=== PATIENT | female | born 1985 | race Caucasian/White ===

== ENCOUNTER → 2019-12-20 17:20 | Outpatient (CLI) | payer MEDICAID ==
[~2019-12-20 17:20] MED LIST: PRENAVITE1 TAB PO
== END | disposition home or self-care (01) ==
LOC: D.LDO 17:20
PROVIDERS: ATTEND Student in an Organized Health Care Education/Training Program
DX: O35.9XX0 Maternal care for (suspected) fetal abnormality and damage, unspecified, not applicable or unspecified (principal)

== ENCOUNTER 2020-01-18 10:10 | Inpatient (IN) | payer MEDICAID ==
[2020-01-18] VITALS (8 sets, daily range): BP systolic 102–123; BP diastolic 61–79; Ht 152.4 cm; Wt 84.4 kg
[~2020-01-18] VITALS: Ht 152.4 cm; Wt 84.4 kg
--- NOTE | ~2020-01-18 | OP ---
PATIENT NAME: JERICHO BARKLEY MEDICAL RECORD: [id number] :87 LOCATION:[facility] D.1222 ADMISSION DATE:01/18/20 SURGEON: CHERYL FARRELL DO DATE OF OPERATION: 01/18/2020 PREOPERATIVE DIAGNOSES: Previous , sandra nonreassuring heart tracing. POSTOPERATIVE DIAGNOSES: Previous , sandra nonreassuring heart tracing. PRIMARY SURGEON: Cheryl Farrell DO ANESTHESIA: Spinal. PROCEDURE: Repeat low transverse section via Pfannenstiel incision. FINDINGS: Male , weight 8 pounds 15 ounces, born at 1448, Apgars 9 and 9. Normal appearing uterus, bilateral fallopian tubes, bilateral ovaries. SPECIMENS: Placenta and cord blood. ESTIMATED BLOOD LOSS: 800 mL. IV FLUIDS: 2 liters. URINE OUTPUT: 550 cc clear urine. COMPLICATIONS: None. CONDITION: Stable. PROCEDURE: The risks, benefits, alternatives, and indications of the procedure were discussed with the patient. She voiced understanding of the procedure and signed the consent. She was taken to the OR where spinal anesthesia was administered and found to be adequate. She was placed in the dorsal supine position with a leftward tilt. She was prepped and draped in the normal sterile fashion. A Pfannenstiel skin incision was made with a scalpel and carried down to the underlying layer of the fascia with the Bovie. The fascia was incised with the midline and extended laterally. The inferior aspect of the fascial incision was grasped with Jaison clamps and the rectus muscle was dissected off sharply. Attention was then turned to the superior aspect of the fascial incision and the rectus muscle was dissected off in a similar fashion. The rectus muscle was grasped with 2 Allises down to the level of the peritoneum with a scalpel. The peritoneum was identified and noted to be free of adherent bowel and entered bluntly. The peritoneum was further with a combination of gentle traction and sharp dissection. The bladder blade was inserted. A bladder flap was created with Metzenbaum scissors and the uterus was incised in a transverse fashion lower uterine segment. The incision was extended with cephalad caudad traction. The infant's head was brought to the incision and the infant delivered without difficulty. Mouth and nose were suctioned. Cord was clamped and cut and the infant was handed off to waiting pediatricians. The placenta was manually removed. Uterus was exteriorized and a moist lap was used to assure complete removal of placental membranes. The hysterotomy was closed with 0 Vicryl in a running locked fashion with good OPERATIVE REPORT [id number] JERICHO BARKLEY hemostasis noted. The uterus, tubes, and ovaries were noted to be normal and returned back to the abdominal cavity. A moist laparotomy sponge was used to assure complete removal of blood clots and fluid from the abdominal cavity. The hysterotomy was reinspected and noted to be hemostatic. The rectus muscle was closed with 2-0 Monocryl in a running fashion with good hemostasis. The fascial incision was closed with 0 Vicryl in running fashion with good hemostasis. The skin was closed with 3-0 Monocryl in a running fashion with good hemostasis in a subcuticular fashion with Dermabond covering. All needle, lap, sponge, and instrument counts were correct times 2. The patient tolerated the procedure well and she was taken to the recovery room in stable condition. TRANSINT:[id number] Voice Confirmation ID: [id number] DOCUMENT ID: [id number] CHERYL FARRELL DO CC: [id number] DICTATION DATE: 01/18/20 1536 ELECTRONIC FUNDS TRANSFER COORDINATOR: 01/19/20 0109 ADM IN [facility] [address] [id number]
[2020-01-18 13:10] LABS: HEMATOCRIT 36.7 % (36.0-48.0); MCH 28.7 pg (26.0-34.0); MCHC 32.7 g/dL (31.0-37.0); MCV 87.8 fL (80.0-100.0); MEAN PLATELET VOLUME 11.8 fL (7.4-10.4); RBC 4.18 10x6/uL (4.00-5.40); RDW 13.2 % (11.5-14.5); WBC 10.5 10x3/uL (4.8-10.8)
--- NOTE | 2020-01-18 16:13 | NUR ---
1528 FUNAL HEIGHT 1 FINGER BREATH BELOW UMBILICUS AND MID LINE. UTERUS FIRM ON PALPATION. NO BLOODY VAGINAL DRAINIAGE OR CLOTS OBSERVED. PERIPAD PUT IN PLACE.
--- NOTE | 2020-01-18 16:15 | NUR ---
RECEIVED PT TO ROOM 1222, POST SECTION BY DR. FARRELL, BY BED FROM REC ROOM, REPORT RECEIVED FROM DARVIN WEN NURSE. PT HAS BIKINI LINE INCISION INTACT WITH GLUE, ABDOMEN PALPATES SOFT, FUNDUS FIRM, U/1, SCANT RUBRA LOCHIA, NO CLOTS. EDWARDS CATH IN PLACE, DRAINING LIGHT YELLOW URINE, 150 ML'S NOTED IN UROMETER. ICE PACK PLACED OVER GOWN TO INCISION. EXISTING PITOCIN 20 UNITS INFUSING OFF PUMP, AT SLOW RATE, IV SITE PATENT, NO REDNESS OR SWELLING NOTED. SRUP X2, CALL LIGHT AND PHONE WITHIN REACH. FAMILY CALLED TO ROOM.
--- NOTE | 2020-01-18 16:20 | NUR ---
JOSE ROBERTO, NURSERY NURSE IN ROOM. PT . PT DENIES ALL NEEDS AT THIS TIME.
--- NOTE | 2020-01-18 16:50 | NUR ---
PT SITTING UP IN BED. VISITORS AT BEDSIDE. IN ROOM IN FOB ARMS. NO COMPLAINTS OR NEEDS AT THIS TIME.
--- NOTE | 2020-01-18 17:45 | NUR ---
STATES PAIN LEVEL IS INCREASING AND REQUESTS STRONGER PAIN MEDICATION. DR. BAEZA NOTIFIED AND ORDERS RECEIVED.
--- NOTE | 2020-01-18 18:15 | NUR ---
INFANT TO ROOM VIA OPEN CRIB WITH NURSERY NURSE. TO MOM'S ARMS TO BREASTFEED.
--- NOTE | 2020-01-18 18:15 | NUR ---
DR. BAEZA ON UNIT, VERBAL ORDER RECEIVED TO ADM DILAUDID 2 MG IV Q 4 HRS PRN FOR MILD PAIN, AND DILAUDID 4 MG IV FOR MODERATE TO SEVERE PAIN, PT MAY HAVE EDWARDS D/C, SL IV, AND ADVANCE DIET SABRINA AT 12 HOURS POST OP, PT MAY HAVE PERCOCET 5 MG TWO PO FOR PAIN, AND MAY HAVE IBUPROFEN 600 MG ONE PO Q 6HPRN PAIN. REPORT TO Tamika VELEZ RN.
--- NOTE | 2020-01-18 18:55 | NUR ---
DILAUDID 2MG GIVEN IVP SLOW OVER 2 MINUTES. INFANT PLACED IN OPEN CRIB AT BEDSIDE. NO VISITORS PRESENT AT THIS TIME.
--- NOTE | 2020-01-18 19:39 | NUR ---
BEDSIDE SHIFT REPORT DONE, INFORMED PT THAT I WILL BE BACK SHORTLY TO DO ASSESSMENT, PT VERBALIZES UNDERSTANDING, RATES INC PAIN 01/07, NEW BAG OF NS WITH PITOCIN HUNG PER MD ORDERS, SEE EMAR, PT DENIES NEEDS AT THIS TIME
--- NOTE | 2020-01-18 20:40 | NUR ---
ASSESSMENT PER FLOW SHEET, VS OBTAINED, IV IN RIGHT WRIST INTACT WITH NO REDNESS OR EDEMA INFUSING VIA PUMP NS WITH PITOCIN AT 125 ML/HR, BIKINI INC WITH DERMABOND CDI WITH NO DRAINAGE NOTED, FRESH ICE PACK TO ABD, LITE-MOD BLEEDING NOTED SINCE THIS IS THE FIRST ROMAINE CARE DONE SINCE SURGERY, PT CLEANED UP WITH WET WARM WASH CLOTHS, WHITE CHUX AND ROMAINE PAD CHANGED, 1 SMALL DIME SIZE CLOT NOTED, FF, ML, U/2, EDWARDS CATH INTACT DRAINING DARK YELLOW URINE, PT ENC TO DRINK PLENTY OF FLUIDS, PT VERBALIZES UNDERSTANDING, PT RATES INC PAIN 02/04, INFORMED PT THAT I WILL ADM PAIN MED WHEN DUE, PT VERBALIZES UNDERSTANDING, PT DENIES FLATUS, SCD'S ON AND WORKING PROPERLY, PT SERVED FRESH H20 AND JELLO PER REQUEST, PT DENIES FURTHER NEEDS, BED IN LOW POSITION, SIDE RAILS X 2, CALL LIGHT IN REACH
--- NOTE | 2020-01-18 21:45 | NUR ---
PT AT THIS TIME, DENIES NEEDS
--- NOTE | 2020-01-18 22:42 | NUR ---
PT JUST FINISHED , ADM DILAUDID SIVP PER MD ORDERS, SEE EMAR, PT REQUESTED AND SERVED LEMON KARLUK SODA, DENIES FURTHER NEEDS
--- NOTE | 2020-01-19 00:30 | NUR ---
PT RESTING WITH EYES CLOSED, RESP QUIET, NO DISTRESS NOTED, LEFT UNDISTURBED AT THIS TIME, IN OPEN CRIB CART AT BEDSIDE
[2020-01-19 00:31] VITALS: BP 115/65
--- NOTE | 2020-01-19 00:31 | NUR ---
PT RESTING WITH EYES CLOSED, AROUSES TO SOFT VERBAL STIMULATION, VS OBTAINED, EDWARDS CATH EMPTIED, ENC PT TO DRINK PLENTY OF FLUIDS, PT VERBALIZES UNDERSTANDING, PT CLEANED UP WITH WET WARM WASH CLOTHS, LITE BLEEDING NOTED WITH NO CLOTS, WHITE CHUX AND ROMAINE PAD CHANGED, SCD'S CONTINUE ON AND WORKING PROPERLY, SERVED FRESH H20 AND APPLE JUICE, RATES INC PAIN 2/10, DENIES FURTHER NEEDS, BED IN LOW POSITION, SIDE RAILS X 2, CALL LIGHT IN REACH
--- NOTE | 2020-01-19 02:33 | NUR ---
RAMIRO BOJORQUEZ RN SPOKE TO DR BAEZA REGARDING DECREASED OUTPUT, ORDERS TO STOP PITOCIN AND ADM 1L OF NS BOLUS AT THIS TIME
--- NOTE | 2020-01-19 03:07 | NUR ---
PT AWAKE, HOLDING INFANT, D/C PITOCIN, NS HUNG VIA PUMP FOR BOLUS, ADM TORADOL SIVP PER MD ORDERS, SEE EMAR, POC DISCUSSED WITH PT, PT VERBALIZES UNDERSTANDING, REQUESTED AND SERVED APPLE JUICE, DENIES FURTHER NEEDS
--- NOTE | 2020-01-19 03:36 | NUR ---
DR BAEZA NOTIFIED, REPORT OF NO PO PAIN MEDS ORDERED, RECEIVED ORDERS FOR TORADOL 10MG Q6H, PERCOCET 5 Q4HRPN AND PERCOCET 5X2 TABLETS Q4HPRN PAIN, ORDERS READ BACK AND VERIFIED, SEE RESTAURANT LEAD
[2020-01-19 04:30] VITALS: BP 115/60
--- NOTE | 2020-01-19 04:30 | NUR ---
PT AWAKE, INFANT TO NSY AT THIS TIME, VS OBTAINED, IV CONVERTED TO SALINE LOCK, FLUSHED WITH 10 MLS OF NS WITH NO DIFFICULTY, EDWARDS CATH REMOVED, TIP INTACT, PT UP TO BR WITH ASSISTANCE, GAIT STEADY, VOIDED BUT MISSED THE [place] HAT, ASSISTED PT WITH ROAMINE CARE, ASSISTED PT WITH ROMAINE PAD, PANTIES, AND GOWN, BLUE SKID SOCKS PLACED ON, PT AMB TO NSY, GAIT STEADY, THIS RN AT SIDE, TO GET INFANT, PT PUSHES IN OPEN CRIB CART TO ROOM 1257
--- NOTE | 2020-01-19 05:00 | NUR ---
PT ORIENTED TO ROOM, PT BEGINS , ALL BELONGINGS BROUGHT TO ROOM, PT RATES PAIN 3/10, DENIES NEED FOR PAIN MED AT THIS TIME, PT INST TO USE CALL LIGHT WHEN NEEDING PAIN MED, PT VERBALIZES UNDERSTANDING, FRESH WATER SERVED, DENIES FURTHER NEEDS
[2020-01-19 05:09] LABS: RAPID PLASMA REAGIN Non Reactive (Non Reactive)
[2020-01-19 05:50] LABS: BASOPHILS 0.2 % (0-2); EOSINOPHILS 0.5 % (0-7); HEMATOCRIT 30.9 % (36.0-48.0); HEMOGLOBIN 9.9 g/dL (12-16); IMMATURE GRANULOCYTES 0.3 % (0-5); LYMPHOCYTES 17.1 % (15-50); MCH 27.9 pg (26.0-34.0); MEAN PLATELET VOLUME 11.6 fL (7.4-10.4); MONOCYTES 6.4 % (2-11); NEUTROPHILS 75.5 % (40-80); RBC 3.55 10x6/uL (4.00-5.40); RDW 13.2 % (11.5-14.5); WBC 11.6 10x3/uL (4.8-10.8)
--- NOTE | 2020-01-19 06:00 | NUR ---
PT TRANSFERRED VIA AMB WITH IN OPEN CRIB CART, GAIT STEADY, TO ROOM 1274, PT ORIENTED TO ROOM, BED IN LOW POSITION, SIDE RAILS X 2, CALL LIGHT IN REACH, ALL BELONGINGS TRANSFERRED WITH PT
[2020-01-19 06:05] LABS: PLATELET COUNT 225 10x3/uL (130-400)
--- NOTE | 2020-01-19 06:15 | NUR ---
PT AMB IN [place], GAIT STEADY, REPORTS PAIN 02/04, REFUSES NEED FOR PAIN MED AT THIS TIME, STATES "I REALLY DON'T FEEL TO BAD"
--- NOTE | 2020-01-19 06:35 | NUR ---
PT BACK TO ROOM
[2020-01-19 08:20] VITALS: BP 119/72
--- NOTE | 2020-01-19 08:20 | NUR ---
UP TO BATHROOM. VOIDED 750 ML CLEAR YELLOW URINE. SHIFT ASSESSMENT COMPLETED. 04/06 TIGHTENING AT INCISION SITE. REQUESTED PERCOCET 5 MG. PASSING GAS BUT DENIES HAVING BOWEL BM YET. LAST BM WAS APPROX 2 DAYS AGO. BREASTFED INFANT EARLIER WITHOUT DIFFICULTY. AMBULATING IN ROOM. AT BED IN CRIB. SIDE RAILS UP X 2, CALL LIGHT IN REACH.
--- NOTE | 2020-01-19 08:24 | NUR ---
PERCOCET 5 MG PO GIVEN FOR RELIEF OF INCISIONAL 5/10 THROBBING DULL PAIN.
--- NOTE | 2020-01-19 10:00 | NUR ---
SITTING UP IN BED HOLDING . SCHEDULE TORADOL GIVEN AND MYLICON 80 MG GIVEN PO FOR RELIEF OF GAS PAIN AND INCISIONAL PAIN. ENCOURAGED AMBULATION AND DISCUSSED CARE OF INFANT DURING AMBULATION. ALSO DISCUSSED LLD POSITION FOR RELIEF OF GAS. VERBALIZED UNDERSTANDING. SIDERAILS UP X 2, CALL LIGHT IN REACH. TO CALL IF ANYTHING IS NEEDED.
--- NOTE | 2020-01-19 12:41 | NUR ---
SITTING UP IN BED TALKING TO VISITORS. DR DURHAM VISITED. 2-02/04 INCISIONAL ACHING. DENIES NEEDING ANYTHING. SALINE LOCK DC'D WITH TIP INTACT. ENCOURAGED TO AMBULATE IN [place]. VERBALIZED UNDERSTANDING. SAYS SHE HAS BEEN WALKING IN ROOM AND TO NURSES DESK X 1. ENCOURAGED TO CONTINUE TO WALK INCREASED DISTANCES. SIDERAILS UP X 2, CALL LIGHT IN REACH. IN ROOM.
[2020-01-19 14:00] VITALS: BP 122/68
--- NOTE | 2020-01-19 14:07 | NUR ---
REQUESTED PAIN MEDICATION FOR 3/10 INCISIONAL THROBBING. ALSO DESIRED MYLICON FOR RELIEF OF GAS. PLANS TO TAKE SHOWER NOW, ITEMS GIVEN AND DISCUSSED CARE OF INCISION SITE. HEBICLEANSE GIVEN FOR USE. DISCUSSED POSSIBILTY OF SKIN ITCHING WITH THIS SOAP. INFANT TO NURSERY. NO CURRENT VISITORS. COMPLETE LINEN CHANGE DONE.
--- NOTE | 2020-01-19 16:27 | NUR ---
POSITIVE HX ON SUICIDE SCREEN. FOOD ORDER EXPEDITER NOTIFIED OF NEED FOR F/U ASSESSMENT. NO CURRENT RISK IDENTIFIED. PT SAYS SHE FEELS SHE HAD SEVERE PP DEPRESSION AFTER LAST DELIVERY. LAYING ON LEFT SIDE. HOB FLAT. INFANT IN CRIB. SIDERAILS UP X 2, CALL LIGHT IN REACH. TO CALL IF ANYTHING IS NEEDED.
[2020-01-19 16:30] VITALS: BP 119/52
--- NOTE | 2020-01-19 17:17 | NUR ---
dr. york notified and reviewed pt's behavior and assessments results. pt is a low risk per dr. york. dr. miguel stated to give resources to pt at time of discharge. no further orders at this time. resources reviewed with pt and she verbalized understanding.
[2020-01-19 21:25] VITALS: BP 120/82
--- NOTE | 2020-01-19 21:25 | NUR ---
PT REC'D IN BED AT THIS TIME. FUNDUS FIRM AND MIDLINE AT THIS TIME. SMALL LOCHIA AT THIS TIME. NO DISTRESS NOTED AT THIS TIME. ASSESSEMNT PER FLOWSHEET. Barb BOJORQUEZ RN
--- NOTE | 2020-01-19 22:16 | NUR ---
PT MEDICATED WITH SCHEDULED TORADOL. Barb BOJORQUEZ RN
--- NOTE | 2020-01-19 22:17 | NUR ---
PT C/O PAIN 3/10 AT INCISION SITE. [place] TORADOL GIVEN. PT SITTING UP IN BED , SHE DENIES ANY FURTHER NEEDS.
--- NOTE | 2020-01-19 22:30 | NUR ---
PT PROVIDED WITH SANDWICH TRAY AND SHAGUFTA. Barb BOJORQUEZ. NII
[2020-01-20 03:53] VITALS: BP 107/61
--- NOTE | 2020-01-20 03:53 | NUR ---
VSS. PT COMPLAINS OF 4/10 PAIN TO INCISIONAL AREA OF LOWER ABDOMEN. FUNDUS IS FIRM, MIDLINE, 1 BELOW, SCANT RUBRA LOCHIA NOTED ON ROMAINE PAD. PT STATES THAT ALL HER NEEDS ARE CURRENTLY MET AT THIS TIME. THIS RN TO TAKE BABY TO NURSERY PER MOTHER'S REQUEST, PT WOULD LIKE TO REST. BED IN LOWEST POSITION, SIDE RAILS UP X2, CALL LIGHT WITHIN REACH. LIGHTS DIMMED, NON-SKID SOCKS ON.
--- NOTE | 2020-01-20 08:31 | NUR ---
PT UP IN RESTROOM AT THIS TIME. NO DISTRESS NOTED. PT INSTRUCTED TO CALL FOR ASSESSEMENT. Barb BOJORQUEZ RN
--- NOTE | 2020-01-20 09:30 | NUR ---
DR. BAEZA HERE TO SPEAK WITH PT, AM ROUNDS.
--- NOTE | 2020-01-20 12:40 | NUR ---
TO PT'S ROOM, ASSESSMENT COMPLETED. PT DENIES HEAVY BLEEDING OR PASSING CLOTS. ABDOMEN PALPATES SOFT. SEE FLOWSHEET. SR UP X2, CALL LIGHT AND PHONE WITHIN REACH. PT SITTING UP IN THE BED, EATING LUNCH. PT DENIES ALL NEEDS AT THIS TIME.
[2020-01-20] MEDS ORDERED: IBUPROFEN600 MG PO (16:48)
[2020-01-20] MEDS ORDERED: PERCOCET 5-3251 TAB PO (17:04)
--- NOTE | 2020-01-20 17:30 | NUR ---
verbal and written discharge instuctions gone over, pt provided with written scripts for Percocet and Motrin. She states her understanding to all info and denies questions or concerns. Tordal given as scanned to emar per pt request. she is dressing at this time and will call when ready for wheelchair.
--- NOTE | 2020-01-20 18:35 | NUR ---
pt calls out that she is ready for wheelchair. Nursery nurse notified and verifies is secured into carrier. pt taken out by wheelchair with . home by private car with family.
--- NOTE | 2020-01-21 12:16 | MORECARE ---
CASE MANAGEMENT DISCHARGE SUMMARY PATIENT: JERICHO BARKLEY UNIT: [id number] ADM DATE: 01/18/20 AGE: 34 : 87 SEX: F ROOM/BED: D.1257 AUTHOR: GAYATRI ROSARIO PHYSICIAN: REFERRING PHYSICIAN: CHERYL FARRELL DO DATE OF SERVICE: 01/21/20 Discharge Plan Patient Name: JERICHO BARKLEY [facility] [facility] 1985 Planned Disposition: Home Anticipated Discharge Date: 01/20/20 Discharge Date: 01/20/2020 Expected LOS: 2 Initial Reviewer: [email or web address] Initial Review Date: 01/18/2020 Generated: 01/21/20 1:15 pm Patient Name: JERICHO BARKLEY Page [id number] at 1216 All edits/amendments must be made on the electronic document DICTATION DATE: 01/21/20 1215 AEGIS CONSOLE OPERATOR TRACK: CEDRICK 01/21/20 1215 RPT#: [id number] DC DATE:01/20/20 STATUS: DIS IN [facility] [address] [place] [address] END OF REPORT
== END 2020-01-20 18:35 | disposition home or self-care (01) | DRG 788 ==
LOC: D.LDO 10:10 → D.LD 12:36 → D.WS 15:57 → D.LD 01-19 05:00
PROVIDERS: ADMIT Student in an Organized Health Care Education/Training Program; ATTEND Student in an Organized Health Care Education/Training Program
PROC: 10D00Z1 Extraction of Products of Conception, Low, Open Approach (ICD-10-PCS; principal; 2020-01-18 13:00)
DX: O34.211 Maternal care for low transverse scar from previous cesarean delivery (principal); Z3A.38 38 weeks gestation of pregnancy; Z37.0 Single live birth; O36.8330 Maternal care for abnormalities of the fetal heart rate or rhythm, third trimester, not applicable or unspecified